=== PATIENT | female | born 1945 | race Caucasian/White ===

== ENCOUNTER 2017-01-19 16:50 | Emergency (ER) | payer MEDICARE, BC ==
[~2017-01-19] VITALS: Ht 160 cm; Wt 63.8 kg
[~2017-01-19 16:50] MED LIST: COLACE100 M1 PO; EVISTA60 M1 PO; KLONOPIN1 M1 PO; KLOR-CON M1010 ME1; MIRALAX17 G2 PO; MOBIC7.5 M2 PO; NORVASC2.5 M1 PO; QUETIAPINE FUM400 M2; SEROQUEL400 M1 PO; TENORMIN50 M1 PO; VAGIFEM10 MC1 VG; VALTREX500 M1 PO; VITAMIN D250000 UNI1 PO; ZETIA10 M1 PO; [UNRECOGNIZED DRUG - OTHER] PO
[2017-01-19] MEDS ORDERED: CITRACEL (17:08)
[2017-01-19] MEDS ORDERED: IMODIUM A-D2 M3 (17:09)
[2017-01-19 18:00] LABS: URINE APPEARANCE CLOUDY; URINE BILIRUBIN NEGATIVE (NEG); URINE BLOOD LARGE (NEG); URINE COLOR YELLOW; URINE GLUCOSE (UA) NEGATIVE (NEG); URINE KETONE NEGATIVE (NEG); URINE LEUKOCYTE ESTERASE POSITIVE (NEG); URINE NITRITE NEGATIVE (NEG); URINE PROTEIN MODERATE (NEG); URINE SPECIFIC GRAVITY 1.005 (1.003-1.030)
[2017-01-19 18:06] LABS: URINE BACTERIA 2+; URINE EPITHELIAL CELLS 0 /[HPF] (0-10); URINE RBC 0 /[HPF] (0-5); URINE WBC 20-40 /[HPF] (0-5)
[2017-01-19] MEDS ORDERED: CIPRO500 M2 PO (18:30)
== END 2017-01-19 18:52 ==
LOC: EDMED 16:50
PROVIDERS: Emergency Medicine
PROC: 4A0D7LZ Measurement of Urinary Volume, Via Natural or Artificial Opening (ICD-10-PCS; principal; 2017-01-19)
DX: N39.0 Urinary tract infection, site not specified (principal); I10 Essential (primary) hypertension; E78.5 Hyperlipidemia, unspecified; Z90.49 Acquired absence of other specified parts of digestive tract; Z79.899 Other long term (current) drug therapy
CPT/HCPCS: P9612